=== PATIENT | female | born 1935 | race Caucasian/White ===

== ENCOUNTER 2019-04-05 21:15 | Emergency (ER) | payer OTHER ==
--- NOTE | 2019-04-05 21:19 | PDOC ---
History of Present Illness - General Stated Complaint: FALL Time Seen by Provider: 04/05/19 21:18 - History of Present Illness Initial Comments: 04/05/19 21:54 The patient is an 83 year old female with a history of HLD, Seizures, Gait disturbance who presents for evaluation following a fall. The patient states that she usually ambulates with a walker, however tonight, her assisted living facility was having a dance and she was dancing on some carpet when she tripped and fell with head trauma prompting her presentation to the ED for further evaluation. She denies LOC and otherwise denies headache, neck pain, fevers, chills, SOB, chest pain, nausea, vomiting, abdominal pain, changes with urination or bowel movements, or other injuries. Past History - Past Medical History Allergies/Adverse Reactions: Allergies Allergy/AdvReac Type Severity Reaction Status Date / Time Penicillins Allergy Verified 04/05/19 22:18 Home Medications: Ambulatory Orders Acetaminophen 325 mg PO PRN 04/05/19 Cyclobenzaprine HCl 5 mg PO BID 04/05/19 Levetiracetam 500 mg PO BID 04/05/19 Loperamide HCl [Loperamide] 2 mg PO PRN 04/05/19 Lovastatin 20 mg PO DAILY 04/05/19 Ranitidine HCl 150 mg PO BID 04/05/19 Vitamin B12 500 mcg PO DAILY 04/05/19 Review of Systems - Review of Systems Comments:: 04/05/19 22:12 Constitutional: No fevers, chills, fatigue, malaise HEENT: No Rhinorrhea, nasal congestion, visual changes Cardiovascular: No chest pain, syncope, palpitations, lightheadedness Respiratory: No Cough, SOB, Hemoptysis, Gastrointestinal: No Abdominal pain, Nausea, Vomiting, Constipation, Diarrhea, Melena Genitourinary: No Dysuria, Frequency, Urgency, Hesitancy, Hematuria, Flank pain Musculoskeletal: No Myalgia, arthralgia Skin: No rashes, itching, bruising, pallor Neurologic: No Headache, Dizziness, Numbness, Weakness, or Tingling Psychiatric: No Hallucinations. No SI or HI *Physical Exam - Physical Exam Comments: 04/05/19 22:12 General Appearance: Nourished. No Apparent Distress HEENT: EOMI, JACOBY. No Pharyngeal Erythema, Tonsillar Exudate, Tonsillar Erythema Neck: No Cervical Lymphadenopathy Respiratory/Chest: Lungs Clear, Normal Breath Sounds. No Crackles, Rales, Rhonchi, Wheezing Cardiovascular: Regular Rhythm, Regular Rate. No Murmur, Gallops, Rubs Gastrointestinal/Abdominal: Normal Bowel Sounds, Soft. 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 Medical Decision Making - Medical Decision Making 04/05/19 22:12 The patient is an 83 year old female with a history of HLD, Seizures, Gait disturbance who presents for evaluation following a fall. Given the patient's history and physical exam, we will obtain a head and cervical spine CT to evaluate further. We will continue to monitor and reassess while here in the ED. 04/06/19 00:[address] were unremarkable as preliminarily read by our director of distribution radiologist. We are comfortable discharging the patient home in stable condition. Patient was made aware of impression and plan, return precautions discussed including but not limited to worsening pain or symptoms, fevers, or signs of infection, chest pain, respiratory distress, inability to tolerate oral intake, dehydration, syncope, or neurologic changes. The patient is to follow up with PMD as recommended within 1 week, follow up information provided and the patient will call for an appointment. The patient is to take medications as instructed for duration of time and continue with supportive care , avoid triggers and precipitants. Patient is safe for outpatient follow-up. *DC/Admit/Observation/Transfer Diagnosis at time of Disposition: Fall Qualifiers: Encounter type: initial encounter Qualified Code(s): W19.XXXA - Unspecified fall, initial encounter - Discharge Dispostion Disposition: HOME Condition at time of disposition: Stable Decision to Admit order: No - Referrals Referrals: Tayo Mc MD [Primary Care Provider] - - Patient Instructions Printed Discharge Instructions: How to Prevent Falls Additional Instructions: 1) Please follow-up with your primary care doctor in the next 2-3 days. Please call tomorrow to schedule a follow up appointment. If you cannot follow up with your doctor within 1 week please return to the Emergency Department for any urgent issues. 2) Your imaging results were normal here in the ER. 3) If you have any worsening of symptoms or any other concerns please return to the ER immediately. Return if worsening symptoms including fevers, headache, vomiting, visual or hearing disturbances, abdominal pain, chest pain, shortness of breath, syncope, dehydration, inability to take things by mouth/vomiting, altered mental status, or worsening concerning symptoms. 4) Please continue taking your home medications as directed. Side effects may include upset stomach, abdominal pain, vomiting, or diarrhea. Do not drink alcohol with your medications. - Post Discharge Activity
[2019-04-05 22:17] VITALS: BMI 33.6
--- NOTE | 2019-04-05 22:49 | PDOC ---
Documentation entered by Shyla Paris SCRIBE, acting as scribe for Neeru Merrill MD. Neeru Merrill MD: This documentation has been prepared by the scribe, Shyla Paris SCRIBE, under my direction and personally reviewed by me in its entirety. I confirm that the documentation accurately reflects all work, treatment, procedures, and medical decision making performed by me. Attending Attestation - Resident Resident Name: William Estevez - ED Attending Attestation I have performed the following: I have examined & evaluated the patient, The case was reviewed & discussed with the resident, I agree w/resident's findings & plan, Exceptions are as noted - HPI HPI: 04/05/19 22:15 The patient is an 83 year old female with a significant past medical history of hypercholesterolemia, dementia, seizures and gait disturbance who presents to the emergency department s/p a fall earlier this evening. The patient reports that she was at her assisted living facility for a dance when she was dancing on a carpeted area when she subsequently fell and hit her head. It is noted that the patient does not recall the incident. The patient usually ambulates with her walker but was not using it this evening while dancing. She denies and loc, numbness, weakness, dizziness, chest pain, shortness of breath or headache. She denies any other symptoms or complaints. - Physicial Exam PE: GENERAL: Awake, alert, and fully oriented, in no acute distress HEAD: No signs of trauma EYES: PERRLA, EOMI, sclera anicteric, conjunctiva clear ENT: Auricles normal inspection, hearing grossly normal, nares patent, oropharynx clear without exudates. Moist mucosa NECK: Normal ROM, supple, no lymphadenopathy, JVD, or masses LUNGS: Breath sounds equal, clear to auscultation bilaterally. No wheezes, and no crackles HEART: Regular rate and rhythm, normal S1 and S2, no murmurs, rubs or gallops ABDOMEN: Soft, nontender, normoactive bowel sounds. No guarding, no rebound. No masses EXTREMITIES: Normal range of motion, no edema. No clubbing or cyanosis. No cords, erythema, or tenderness NEUROLOGICAL: Cranial nerves II through XII grossly intact. Normal speech. Motor and sensation intact SKIN: Warm, Dry, normal turgor, no rashes or lesions noted SPINE: No midline tenderness - Medical Decision Making Pt is s/p fall with head injury as per NH. Pt does not clearly recall the events that transpired (history of dementia). There are no outward signs of trauma, and she has no midline tenderness. Will obtain CTH and c-spine based on NH report and on account of patient's age. If neg will DC back to NH.
[2019-04-06] MEDS ORDERED: levETIRAcetam 500 MG TABLET (FP) PO ONE ×2 (01:05→01:07)
[2019-04-06 01:11] VITALS: BP 80/58; PULSE 74; TEMP 98.2
== END 2019-04-06 01:11 | disposition home or self-care (01) ==
LOC: JER 21:15
DX: S09.8XXA Other specified injuries of head, initial encounter (principal); W18.09XA Striking against other object with subsequent fall, initial encounter; Y93.41 Activity, dancing; Y92.098 Other place in other non-institutional residence as the place of occurrence of the external cause; Y99.8 Other external cause status; E78.5 Hyperlipidemia, unspecified; G40.909 Epilepsy, unspecified, not intractable, without status epilepticus; R26.89 Other abnormalities of gait and mobility; Z99.89 Dependence on other enabling machines and devices
CPT/HCPCS: 70450-TC; 72125-TC; 99282-25

== ENCOUNTER 2020-12-28 07:54 | Inpatient (IN) | payer OTHER ==
[2020-12-28 08:20] VITALS: BMI 32.9
[2020-12-28 09:57] LABS: BASO % 0.6 % (0-2.0); EOS % 3.5 % (0-4.5); HEMATOCRIT 35.7 % (32.4-45.2); HEMOGLOBIN 12.2 GM/dL (10.7-15.3); LYMPH % 30.2 % (8-40); MCH 30.6 pg (25.7-33.7); MCHC 34.1 g/dl (32.0-36.0); MEAN CELL VOLUME 89.8 fl (80-96); MEAN PLT VOLUME 7.4 fl (7.5-11.1); MONO % 8.5 % (3.8-10.2); NEUT % 57.2 % (42.8-82.8); PLATELET COUNT 287 K/MM3 (134-434); RBC 3.97 M/mm3 (3.60-5.2); RDW 14.7 % (11.6-15.6); WHITE BLOOD COUNT 7.9 K/mm3 (4.0-10.0)
[2020-12-28 10:16] LABS: CHLORIDE 106 mmol/L (98-107); POTASSIUM 4.4 mmol/L (3.5-5.1); SODIUM 139 mmol/L (136-145)
[2020-12-28 10:19] LABS: ALBUMIN 3.2 g/dl (3.4-5.0); CALCIUM 9.1 mg/dL (8.5-10.1)
[2020-12-28 10:21] LABS: ANION GAP 2 MMOL/L (8-16); CO2 31 mmol/L (21-32); GLUCOSE,RANDOM 96 mg/dL (74-106)
[2020-12-28 10:24] LABS: CREATININE 0.7 mg/dL (0.55-1.3); SGOT/AST 22 U/L (15-37); SGPT/ALT 20 U/L (13-61)
[2020-12-28 10:25] LABS: BILIRUBIN,TOTAL 0.5 mg/dL (0.2-1); TOT PROT 6.9 g/dl (6.4-8.2)
[2020-12-28 10:26] LABS: ALK PHOS 94 U/L (45-117)
[2020-12-28 10:46] LABS: EPI CELLS 2 /uL (0-25.1); HYALINE CASTS 0 /uL (0-3.1); URINE APPEARANCE CLEAR; URINE BACTERIA >9,000 /uL (0-1359); URINE BILIRUBIN NEGATIVE (NEGATIVE); URINE COLOR YELLOW; URINE GLUCOSE (UA) NEGATIVE (NEGATIVE); URINE KETONE NEGATIVE (NEGATIVE); URINE LEUK ESTERASE 3+ (NEGATIVE); URINE NITRITE POSITIVE (NEGATIVE); URINE PROTEIN NEGATIVE (NEGATIVE); URINE RBC 6 /uL (0-23.9); URINE UROBILINOGEN 0.2 mg/dL (0.2-1.0); URINE WBC 310 /uL (0-25.8)
[2020-12-28] MEDS ORDERED: CIPROFLOXACIN 200 MG/D5W 100 ML IVPB ONE (10:50)
[2020-12-28] MEDS ORDERED: SODIUM CHLORIDE 1,000 ML IV SCH (17:15)
[2020-12-28] MEDS: HEPARIN NA (PORCINE) 5,000 UNITS/ML 1ML VIAL SQ SCH (18:42)
[2020-12-28] MEDS: ATORVASTATIN CA 10 MG TABLET (FP) PO SCH (21:33)
[2020-12-28] MEDS: levETIRAcetam 500 MG TABLET (FP) PO SCH (21:33)
[2020-12-28] MEDS ORDERED: CIPROFLOXACIN 400 MG/D5W 400 MG/200 ML IVPB IVPB SCH (22:00)
[2020-12-29] MEDS: HEPARIN NA (PORCINE) 5,000 UNITS/ML 1ML VIAL SQ SCH ×3 (01:58→16:57)
[2020-12-29 07:17] LABS: BASO % 1.3 % (0-2.0); EOS % 5.8 % (0-4.5); HEMATOCRIT 33.7 % (32.4-45.2); HEMOGLOBIN 11.5 GM/dL (10.7-15.3); LYMPH % 37.1 % (8-40); MCH 30.9 pg (25.7-33.7); MCHC 34.1 g/dl (32.0-36.0); MEAN CELL VOLUME 90.6 fl (80-96); MEAN PLT VOLUME 7.6 fl (7.5-11.1); MONO % 10.8 % (3.8-10.2); PLATELET COUNT 261 K/MM3 (134-434); RBC 3.72 M/mm3 (3.60-5.2); RDW 14.4 % (11.6-15.6); WHITE BLOOD COUNT 5.9 K/mm3 (4.0-10.0)
[2020-12-29 07:43] LABS: POTASSIUM 3.9 mmol/L (3.5-5.1)
[2020-12-29 07:51] LABS: ALBUMIN 2.8 g/dl (3.4-5.0); BLOOD UREA NITROGEN 7.4 mg/dL (7-18); CALCIUM 8.9 mg/dL (8.5-10.1); MAGNESIUM 2.3 mg/dL (1.8-2.4)
[2020-12-29 07:55] LABS: CREATININE 0.6 mg/dL (0.55-1.3); PHOSPHOROUS 3.8 mg/dL (2.5-4.9)
[2020-12-29 07:56] LABS: BILIRUBIN,TOTAL 0.4 mg/dL (0.2-1)
[2020-12-29] MEDS: PANTOPRAZOLE 40 MG TABLET PO SCH (09:38)
[2020-12-29] MEDS: levETIRAcetam 500 MG TABLET (FP) PO SCH ×2 (09:38→21:28)
[2020-12-29] MEDS ORDERED: cefTRIAXone SODIUM 1 GM VIAL ONE (09:52)
[2020-12-29] MEDS ORDERED: DEXTROSE 5%-WATER - 50 ML IVPB ONE (09:53)
[2020-12-29] MEDS: CEFTRIAXONE 1 GM in DEXTROSE 5%-WATER - 50 ML IVPB SCH (10:09)
[2020-12-29] MEDS ORDERED: PNEUMOC 13-VAL CONJ-DIP CRM/PF 0.5 ML DISP.SYRIN IM ONE (14:00)
[2020-12-29] MEDS: ATORVASTATIN CA 10 MG TABLET (FP) PO SCH (21:28)
[2020-12-30] MEDS: HEPARIN NA (PORCINE) 5,000 UNITS/ML 1ML VIAL SQ SCH ×2 (01:58→10:37)
[2020-12-30 07:33] LABS: POTASSIUM 4.1 mmol/L (3.5-5.1)
[2020-12-30 07:35] LABS: BLOOD UREA NITROGEN 10.5 mg/dL (7-18); CALCIUM 8.8 mg/dL (8.5-10.1)
[2020-12-30 07:38] LABS: CREATININE 0.6 mg/dL (0.55-1.3)
[2020-12-30 07:43] LABS: HEMATOCRIT 35.7 % (32.4-45.2); MCH 30.3 pg (25.7-33.7); MCHC 33.5 g/dl (32.0-36.0); MEAN CELL VOLUME 90.3 fl (80-96); PLATELET COUNT 251 K/MM3 (134-434); RBC 3.95 M/mm3 (3.60-5.2); RDW 14.4 % (11.6-15.6); WHITE BLOOD COUNT 6.9 K/mm3 (4.0-10.0)
[2020-12-30] MEDS ORDERED: cefTRIAXone SODIUM 1 GM VIAL ONE (09:44)
[2020-12-30] MEDS ORDERED: DEXTROSE 5%-WATER - 50 ML IVPB ONE (09:44)
[2020-12-30] MEDS: CEFTRIAXONE 1 GM in DEXTROSE 5%-WATER - 50 ML IVPB SCH (10:36)
[2020-12-30] MEDS: PANTOPRAZOLE 40 MG TABLET PO SCH (10:37)
[2020-12-30] MEDS: levETIRAcetam 500 MG TABLET (FP) PO SCH (10:37)
[2020-12-30 13:53] VITALS: BP 124/62; PULSE 73; TEMP 98
== END 2020-12-30 16:23 | disposition home or self-care (01) | DRG 689 ==
LOC: JER 07:54 → JERBED 10:54 → J7W 15:44
PROVIDERS: ADMIT Internal Medicine
DX: N39.0 Urinary tract infection, site not specified (principal); G93.41 Metabolic encephalopathy; F03.90 Unspecified dementia, unspecified severity, without behavioral disturbance, psychotic disturbance, mood disturbance, and anxiety; G40.909 Epilepsy, unspecified, not intractable, without status epilepticus; E78.5 Hyperlipidemia, unspecified; K21.9 Gastro-esophageal reflux disease without esophagitis; I10 Essential (primary) hypertension; B96.20 Unspecified Escherichia coli [E. coli] as the cause of diseases classified elsewhere
CPT/HCPCS: 36415; 70450-TC; 80048; 80053; 81003; 82550; 83735; 84100; 84484; 85025; 85027; 87086; 87186; 90670; 93005; 93010; 97116-GP; 97161-GP; 99285-25; C9803; J1644; U0003

== ENCOUNTER 2021-01-06 07:26 | Inpatient (IN) | payer OTHER ==
[2021-01-06 15:40] LABS: EOS % 3.9 % (0-4.5); HEMATOCRIT 31.9 % (32.4-45.2); HEMOGLOBIN 10.7 GM/dL (10.7-15.3); LYMPH % 35.8 % (8-40); MCH 30.4 pg (25.7-33.7); MCHC 33.4 g/dl (32.0-36.0); MEAN CELL VOLUME 90.9 fl (80-96); MEAN PLT VOLUME 8.7 fl (7.5-11.1); NEUT % 51.3 % (42.8-82.8); PLATELET COUNT 127 K/MM3 (134-434); RBC 3.51 M/mm3 (3.60-5.2); RDW 14.5 % (11.6-15.6); WHITE BLOOD COUNT 5.1 K/mm3 (4.0-10.0)
[2021-01-06] MEDS ORDERED: levETIRAcetam 500 MG/5 ML INJECTION VIAL IVPB ONE ×2 (15:46→16:07)
[2021-01-06] MEDS ORDERED: ENOXAPARIN NA (PORCINE) 80 MG/0.8 ML DISP.SYRIN SQ ONE ×2 (16:09→16:52)
[2021-01-06 16:38] LABS: PLATELET ESTIMATE DECREASED
[2021-01-06 16:49] LABS: ALBUMIN 3.2 g/dl (3.4-5.0); BILIRUBIN,TOTAL 0.5 mg/dL (0.2-1); BLOOD UREA NITROGEN 10.3 mg/dL (7-18); CALCIUM 9.4 mg/dL (8.5-10.1); CREATININE 0.5 mg/dL (0.55-1.3); POTASSIUM 4.6 mmol/L (3.5-5.1); TOT PROT 7.1 g/dl (6.4-8.2)
[2021-01-06] MEDS ORDERED: levETIRAcetam 500 MG TABLET (FP) PO ONE ×2 (19:09→20:26)
[2021-01-07] MEDS: ENOXAPARIN NA (PORCINE) 80 MG/0.8 ML DISP.SYRIN SQ SCH ×3 (06:02→19:08)
[2021-01-07] MEDS: levETIRAcetam 500 MG TABLET (FP) PO SCH ×2 (10:13→21:38)
[2021-01-07 11:12] LABS: BASO % 0.6 % (0-2.0); EOS % 3.8 % (0-4.5); HEMATOCRIT 35.7 % (32.4-45.2); HEMOGLOBIN 11.9 GM/dL (10.7-15.3); LYMPH % 29.1 % (8-40); MCH 30.3 pg (25.7-33.7); MCHC 33.4 g/dl (32.0-36.0); MEAN CELL VOLUME 90.5 fl (80-96); MEAN PLT VOLUME 7.8 fl (7.5-11.1); MONO % 10.7 % (3.8-10.2); NEUT % 55.8 % (42.8-82.8); PLATELET COUNT 270 K/MM3 (134-434); RBC 3.95 M/mm3 (3.60-5.2); RDW 14.3 % (11.6-15.6); WHITE BLOOD COUNT 7.1 K/mm3 (4.0-10.0)
[2021-01-07 11:39] VITALS: BMI 27.3
[2021-01-07 11:44] LABS: ALBUMIN 2.9 g/dl (3.4-5.0); MAGNESIUM 2.2 mg/dL (1.8-2.4)
[2021-01-07 11:47] LABS: CREATININE 0.6 mg/dL (0.55-1.3)
[2021-01-07 11:49] LABS: TOT PROT 6.4 g/dl (6.4-8.2)
[2021-01-07 11:50] LABS: BILIRUBIN,TOTAL 0.4 mg/dL (0.2-1)
[2021-01-07] MEDS: ACETAMINOPHEN 325 MG TABLET (FP) PO PRN (15:52)
[2021-01-08] MEDS: ENOXAPARIN NA (PORCINE) 80 MG/0.8 ML DISP.SYRIN SQ SCH ×2 (05:47→17:12)
[2021-01-08] MEDS: levETIRAcetam 500 MG TABLET (FP) PO SCH ×2 (10:18→21:14)
[2021-01-08] MEDS: ACETAMINOPHEN 325 MG TABLET (FP) PO PRN ×2 (10:18→21:14)
[2021-01-09] MEDS: ACETAMINOPHEN 325 MG TABLET (FP) PO PRN ×4 (01:40→16:37)
[2021-01-09] MEDS: ENOXAPARIN NA (PORCINE) 80 MG/0.8 ML DISP.SYRIN SQ SCH ×2 (05:41→17:05)
[2021-01-09] MEDS: levETIRAcetam 500 MG TABLET (FP) PO SCH ×2 (09:39→21:02)
[2021-01-10] MEDS: ENOXAPARIN NA (PORCINE) 80 MG/0.8 ML DISP.SYRIN SQ SCH (05:21)
[2021-01-10] MEDS: ACETAMINOPHEN 325 MG TABLET (FP) PO PRN ×3 (06:26→15:03)
[2021-01-10] MEDS: levETIRAcetam 500 MG TABLET (FP) PO SCH ×2 (09:18→21:57)
[2021-01-10] MEDS: APIXABAN 5 MG TABLET PO SCH ×2 (10:52→21:57)
[2021-01-11] MEDS: ACETAMINOPHEN 325 MG TABLET (FP) PO PRN ×2 (01:52→10:11)
[2021-01-11 10:07] VITALS: BP 130/62; PULSE 76; TEMP 98.1
[2021-01-11] MEDS: levETIRAcetam 500 MG TABLET (FP) PO SCH (10:18)
[2021-01-11] MEDS: APIXABAN 5 MG TABLET PO SCH (10:18)
== END 2021-01-11 11:20 | disposition home or self-care (01) | DRG 301 ==
LOC: JER 07:26 → JERBED 18:28 → J7W 01-07 05:48
PROVIDERS: ADMIT Internal Medicine
DX: I82.401 Acute embolism and thrombosis of unspecified deep veins of right lower extremity (principal); G40.909 Epilepsy, unspecified, not intractable, without status epilepticus; K21.9 Gastro-esophageal reflux disease without esophagitis; E78.5 Hyperlipidemia, unspecified
CPT/HCPCS: 36415; 71045-TC-FY; 72192-TC; 72195-TC; 73523-TC-FY; 80053; 83735; 84100; 84484; 85025; 93005; 93010; 93971-TC; 97161-GP; 99285-25; C9803; U0003; U0005

== ENCOUNTER 2021-01-11 23:35 | Inpatient (IN) | payer OTHER ==
[2021-01-11 23:46] VITALS: BMI 27.2
[2021-01-12 00:19] LABS: BASO % 0.3 % (0-2.0); EOS % 0.8 % (0-4.5); HEMATOCRIT 35.7 % (32.4-45.2); HEMOGLOBIN 12.1 GM/dL (10.7-15.3); MCHC 33.8 g/dl (32.0-36.0); MEAN CELL VOLUME 88.7 fl (80-96); MEAN PLT VOLUME 8.3 fl (7.5-11.1); MONO % 8.8 % (3.8-10.2); NEUT % 78.1 % (42.8-82.8); PLATELET COUNT 299 K/MM3 (134-434); RBC 4.03 M/mm3 (3.60-5.2); RDW 14.9 % (11.6-15.6); WHITE BLOOD COUNT 13.8 K/mm3 (4.0-10.0)
[2021-01-12 00:28] LABS: INR 1.53 (0.83-1.09); PROTHROMBIN TIME (PATIENT) 18.6 SEC (9.7-13.0)
[2021-01-12 00:31] LABS: ACTIVATED PTT 33.3 SECONDS (25.2-36.5)
[2021-01-12 00:48] LABS: CHLORIDE 100 mmol/L (98-107); SODIUM 126 mmol/L (136-145)
[2021-01-12 00:50] LABS: CALCIUM 8.8 mg/dL (8.5-10.1)
[2021-01-12 00:51] LABS: ALBUMIN 2.7 g/dl (3.4-5.0); BLOOD UREA NITROGEN 16.1 mg/dL (7-18); CO2 25 mmol/L (21-32); GLUCOSE,RANDOM 129 mg/dL (74-106)
[2021-01-12 00:54] LABS: CREATININE 0.9 mg/dL (0.55-1.3)
[2021-01-12 00:57] LABS: ALK PHOS 104 U/L (45-117)
[2021-01-12 01:19] LABS: ANION GAP 0 MMOL/L (8-16); POTASSIUM > 10.0 mmol/L (3.5-5.1); SGOT/AST 177 U/L (15-37); SGPT/ALT 42 U/L (13-61)
[2021-01-12 01:21] LABS: BILIRUBIN,TOTAL < 0.1 mg/dL (0.2-1)
[2021-01-12 02:21] LABS: POTASSIUM 4.3 mmol/L (3.5-5.1)
[2021-01-12 02:22] LABS: BLOOD UREA NITROGEN 14.8 mg/dL (7-18); CALCIUM 9.1 mg/dL (8.5-10.1)
[2021-01-12 02:26] LABS: CREATININE 0.8 mg/dL (0.55-1.3)
[2021-01-12 03:20] LABS: PH,URINE 5.5 (5.0-8.0); URINE APPEARANCE CLEAR; URINE BILIRUBIN NEGATIVE (NEGATIVE); URINE COLOR YELLOW; URINE GLUCOSE (UA) NEGATIVE (NEGATIVE); URINE KETONE TRACE (NEGATIVE); URINE LEUK ESTERASE NEGATIVE (NEGATIVE); URINE NITRITE NEGATIVE (NEGATIVE); URINE PROTEIN TRACE (NEGATIVE); URINE UROBILINOGEN 0.2 mg/dL (0.2-1.0)
[2021-01-12] MEDS ORDERED: LIDOCAINE 5% TOPICAL PATCH TP ONE (06:05)
[2021-01-12] MEDS ORDERED: ACETAMINOPHEN 1000 MG/100 ML VIAL (NON FORMULARY) IVPB ONE ×2 (06:05→14:45)
[2021-01-12] MEDS ORDERED: SODIUM CHLORIDE 1,000 ML IV SCH (06:15)
[2021-01-12 09:35] LABS: HEMATOCRIT 33.4 % (32.4-45.2); HEMOGLOBIN 11.4 GM/dL (10.7-15.3); MCH 30.8 pg (25.7-33.7); MCHC 34.2 g/dl (32.0-36.0); MEAN CELL VOLUME 90.1 fl (80-96); MEAN PLT VOLUME 7.9 fl (7.5-11.1); PLATELET COUNT 289 K/MM3 (134-434); RDW 14.3 % (11.6-15.6); WHITE BLOOD COUNT 11.1 K/mm3 (4.0-10.0)
[2021-01-12] MEDS ORDERED: levETIRAcetam 500 MG TABLET (FP) PO SCH (10:00)
[2021-01-12] MEDS ORDERED: APIXABAN 5 MG TABLET PO SCH (10:00)
[2021-01-12 10:01] LABS: CALCIUM 8.8 mg/dL (8.5-10.1)
[2021-01-12 10:02] LABS: ALBUMIN 2.9 g/dl (3.4-5.0); MAGNESIUM 2.2 mg/dL (1.8-2.4)
[2021-01-12 10:05] LABS: CREATININE 0.7 mg/dL (0.55-1.3); PHOSPHOROUS 3.9 mg/dL (2.5-4.9)
[2021-01-12 10:06] LABS: BILIRUBIN,TOTAL 0.7 mg/dL (0.2-1); TOT PROT 6.5 g/dl (6.4-8.2)
[2021-01-12 10:09] LABS: ERYTHROCYTE SEDIMENTATION RATE 89 mm/hr (0-30)
[2021-01-12] MEDS ORDERED: levETIRAcetam 500 MG TABLET (FP) PO ONE (10:15)
[2021-01-12] MEDS ORDERED: APIXABAN 5 MG TABLET ONE (10:15)
[2021-01-12] MEDS ORDERED: traMADol HCL 50 MG TABLET PO PRN (12:00)
[2021-01-12] MEDS ORDERED: traMADol HCL 50 MG TABLET PO ONE (12:00)
[2021-01-12] MEDS ORDERED: traMADol HCL 50 MG TABLET ONE (13:07)
[2021-01-12] MEDS ORDERED: morphine CARPU-JECT 2 MG/1 ML DISP.SYRIN IM ONE (14:12)
[2021-01-12] MEDS ORDERED: ACETAMINOPHEN INJECTION 100 ML IVPB ONE (14:36)
[2021-01-12 18:11] VITALS: BP 133/69; PULSE 67; TEMP 97.8
[2021-01-12] MEDS ORDERED: LIDOCAINE PATCH REMOVAL MC SCH (22:00)
== END 2021-01-12 18:01 | disposition home health service (06) | DRG 301 ==
LOC: JER 23:35 → JERBED 01-12 04:36
PROVIDERS: ADMIT Hospitalist
DX: I82.4Z1 Acute embolism and thrombosis of unspecified deep veins of right distal lower extremity (principal); M79.605 Pain in left leg; E78.5 Hyperlipidemia, unspecified; K21.9 Gastro-esophageal reflux disease without esophagitis; F03.90 Unspecified dementia, unspecified severity, without behavioral disturbance, psychotic disturbance, mood disturbance, and anxiety
CPT/HCPCS: 36415; 70450-TC; 71045-TC-FY; 73502-TC-LT-FY; 73523-TC-FY; 80048; 80053; 81003; 82607; 82746; 83735; 84100; 84436; 84443; 84484; 85025; 85027; 85610; 85651; 85730; 86140; 87086; 93005; 93010; 99285-25; C9803; J0131; U0003; U0005

== ENCOUNTER 2021-01-12 19:39 | Inpatient (IN) | payer OTHER ==
[2021-01-12] MEDS ORDERED: APIXABAN 5 MG TABLET PO ONE (21:25)
[2021-01-12] MEDS ORDERED: levETIRAcetam 500 MG TABLET (FP) PO ONE ×2 (21:25→21:31)
[2021-01-12] MEDS ORDERED: APIXABAN 5 MG TABLET ONE (21:30)
[2021-01-12] MEDS ORDERED: DOCUSATE SODIUM 100 MG CAPSULE (FP) PO PRN (22:49)
[2021-01-12] MEDS ORDERED: SODIUM CHLORIDE 1,000 ML IV SCH (23:00)
[2021-01-12] MEDS ORDERED: LIDOCAINE 5% TOPICAL PATCH TP ONE (23:06)
[2021-01-12] MEDS ORDERED: ACETAMINOPHEN 325 MG TABLET (FP) PO PRN (23:08)
[2021-01-13] MEDS: ACETAMINOPHEN 325 MG TABLET (FP) PO PRN ×2 (01:32→14:35)
[2021-01-13 08:09] LABS: BASO % 0.4 % (0-2.0); EOS % 3.6 % (0-4.5); HEMATOCRIT 32.4 % (32.4-45.2); HEMOGLOBIN 11.1 GM/dL (10.7-15.3); LYMPH % 26.7 % (8-40); MCHC 34.2 g/dl (32.0-36.0); MEAN CELL VOLUME 90.7 fl (80-96); MEAN PLT VOLUME 8.6 fl (7.5-11.1); MONO % 8.9 % (3.8-10.2); NEUT % 60.4 % (42.8-82.8); PLATELET COUNT 296 K/MM3 (134-434); RBC 3.57 M/mm3 (3.60-5.2); WHITE BLOOD COUNT 8.5 K/mm3 (4.0-10.0)
[2021-01-13 08:25] LABS: CALCIUM 8.6 mg/dL (8.5-10.1)
[2021-01-13 08:26] LABS: ALBUMIN 2.9 g/dl (3.4-5.0); BLOOD UREA NITROGEN 10.6 mg/dL (7-18); MAGNESIUM 2.2 mg/dL (1.8-2.4)
[2021-01-13 08:28] LABS: CREATININE 0.5 mg/dL (0.55-1.3); PHOSPHOROUS 3.6 mg/dL (2.5-4.9)
[2021-01-13 08:30] LABS: BILIRUBIN,TOTAL 0.8 mg/dL (0.2-1); TOT PROT 6.5 g/dl (6.4-8.2)
[2021-01-13] MEDS: levETIRAcetam 500 MG TABLET (FP) PO SCH ×2 (09:00→16:14)
[2021-01-13] MEDS: APIXABAN 5 MG TABLET PO SCH ×2 (09:00→21:36)
[2021-01-13] MEDS ORDERED: levETIRAcetam 500 MG TABLET (FP) PO SCH (10:00)
[2021-01-13] MEDS ORDERED: LIDOCAINE PATCH REMOVAL MC ONE (11:00)
[2021-01-13] MEDS: traMADol HCL 50 MG TABLET PO PRN (21:34)
[2021-01-13] MEDS: GABAPENTIN 100 MG CAPSULE PO SCH (21:37)
[2021-01-14 05:11] LABS: SARS-CoV-2 NAA Not Detected (Not Detected)
[2021-01-14] MEDS: GABAPENTIN 100 MG CAPSULE PO SCH ×3 (06:23→21:25)
[2021-01-14] MEDS: levETIRAcetam 500 MG TABLET (FP) PO SCH ×2 (06:23→17:13)
[2021-01-14 08:18] LABS: BASO % 0.4 % (0-2.0); EOS % 3.2 % (0-4.5); HEMATOCRIT 31.1 % (32.4-45.2); HEMOGLOBIN 10.5 GM/dL (10.7-15.3); LYMPH % 24.4 % (8-40); MCH 30.5 pg (25.7-33.7); MCHC 33.9 g/dl (32.0-36.0); MEAN CELL VOLUME 90.1 fl (80-96); MEAN PLT VOLUME 8.1 fl (7.5-11.1); MONO % 8.8 % (3.8-10.2); NEUT % 63.2 % (42.8-82.8); PLATELET COUNT 318 K/MM3 (134-434); RBC 3.45 M/mm3 (3.60-5.2); RDW 13.9 % (11.6-15.6); WHITE BLOOD COUNT 8.3 K/mm3 (4.0-10.0)
[2021-01-14 08:38] LABS: ALBUMIN 2.6 g/dl (3.4-5.0); BLOOD UREA NITROGEN 7.2 mg/dL (7-18); CALCIUM 8.7 mg/dL (8.5-10.1)
[2021-01-14 08:42] LABS: CREATININE 0.5 mg/dL (0.55-1.3)
[2021-01-14 08:43] LABS: BILIRUBIN,TOTAL 0.5 mg/dL (0.2-1)
[2021-01-14] MEDS: APIXABAN 5 MG TABLET PO SCH ×2 (10:46→21:25)
[2021-01-14 14:36] VITALS: BMI 20.6
[2021-01-14] MEDS: ACETAMINOPHEN 325 MG TABLET (FP) PO PRN (17:11)
[2021-01-14] MEDS: AMINO ACIDS/PROTEIN HYDROLYS 30 ML LIQUID.PKT PO SCH (17:13)
[2021-01-15] MEDS: levETIRAcetam 500 MG TABLET (FP) PO SCH ×2 (06:24→16:46)
[2021-01-15] MEDS: GABAPENTIN 100 MG CAPSULE PO SCH ×3 (06:24→21:05)
[2021-01-15] MEDS: ACETAMINOPHEN 325 MG TABLET (FP) PO PRN (08:59)
[2021-01-15] MEDS: AMINO ACIDS/PROTEIN HYDROLYS 30 ML LIQUID.PKT PO SCH ×2 (09:00→16:47)
[2021-01-15] MEDS: APIXABAN 5 MG TABLET PO SCH ×2 (09:00→21:05)
[2021-01-15] MEDS: MULTIVITAMINS THER W-MINERALS COMBO TABLET (FP) PO SCH (09:00)
[2021-01-15] MEDS: traMADol HCL 50 MG TABLET PO PRN (21:05)
[2021-01-16] MEDS: levETIRAcetam 500 MG TABLET (FP) PO SCH ×2 (06:50→17:27)
[2021-01-16] MEDS: GABAPENTIN 100 MG CAPSULE PO SCH ×3 (06:50→21:16)
[2021-01-16 07:34] LABS: BASO % 0.8 % (0-2.0); HEMATOCRIT 30.8 % (32.4-45.2); HEMOGLOBIN 10.3 GM/dL (10.7-15.3); LYMPH % 35.9 % (8-40); MCH 30.3 pg (25.7-33.7); MCHC 33.5 g/dl (32.0-36.0); MEAN CELL VOLUME 90.4 fl (80-96); MEAN PLT VOLUME 8.1 fl (7.5-11.1); MONO % 9.2 % (3.8-10.2); NEUT % 49.1 % (42.8-82.8); PLATELET COUNT 365 K/MM3 (134-434); RDW 13.6 % (11.6-15.6); WHITE BLOOD COUNT 7.8 K/mm3 (4.0-10.0)
[2021-01-16 08:00] LABS: CALCIUM 8.8 mg/dL (8.5-10.1)
[2021-01-16 08:01] LABS: ALBUMIN 2.5 g/dl (3.4-5.0); BLOOD UREA NITROGEN 17.9 mg/dL (7-18)
[2021-01-16 08:04] LABS: CREATININE 0.5 mg/dL (0.55-1.3)
[2021-01-16 08:06] LABS: BILIRUBIN,TOTAL 0.4 mg/dL (0.2-1); TOT PROT 5.9 g/dl (6.4-8.2)
[2021-01-16] MEDS ORDERED: PT OWN MED DRAWER 7, Y5N ONE (09:37)
[2021-01-16] MEDS: APIXABAN 5 MG TABLET PO SCH ×2 (10:46→21:16)
[2021-01-16] MEDS: MULTIVITAMINS THER W-MINERALS COMBO TABLET (FP) PO SCH (10:46)
[2021-01-16] MEDS: AMINO ACIDS/PROTEIN HYDROLYS 30 ML LIQUID.PKT PO SCH ×2 (10:46→16:49)
[2021-01-16] MEDS: ACETAMINOPHEN 325 MG TABLET (FP) PO PRN (21:16)
[2021-01-17] MEDS: levETIRAcetam 500 MG TABLET (FP) PO SCH ×2 (06:28→16:39)
[2021-01-17] MEDS: GABAPENTIN 100 MG CAPSULE PO SCH ×2 (06:28→14:49)
[2021-01-17 09:33] LABS: BASO % 0.7 % (0-2.0); EOS % 5.8 % (0-4.5); HEMATOCRIT 34.2 % (32.4-45.2); HEMOGLOBIN 11.5 GM/dL (10.7-15.3); LYMPH % 34.6 % (8-40); MCH 30.2 pg (25.7-33.7); MCHC 33.5 g/dl (32.0-36.0); MEAN CELL VOLUME 90.2 fl (80-96); MEAN PLT VOLUME 7.9 fl (7.5-11.1); MONO % 9.1 % (3.8-10.2); NEUT % 49.8 % (42.8-82.8); PLATELET COUNT 431 K/MM3 (134-434); RBC 3.79 M/mm3 (3.60-5.2); RDW 13.7 % (11.6-15.6); WHITE BLOOD COUNT 6.4 K/mm3 (4.0-10.0)
[2021-01-17 10:02] LABS: ALBUMIN 2.8 g/dl (3.4-5.0)
[2021-01-17 10:05] LABS: BLOOD UREA NITROGEN 16.4 mg/dL (7-18); CALCIUM 8.9 mg/dL (8.5-10.1)
[2021-01-17 10:06] LABS: BILIRUBIN,TOTAL 0.6 mg/dL (0.2-1)
[2021-01-17 10:07] LABS: TOT PROT 6.5 g/dl (6.4-8.2)
[2021-01-17 10:08] LABS: CREATININE 0.5 mg/dL (0.55-1.3)
[2021-01-17] MEDS: MULTIVITAMINS THER W-MINERALS COMBO TABLET (FP) PO SCH (10:46)
[2021-01-17] MEDS: AMINO ACIDS/PROTEIN HYDROLYS 30 ML LIQUID.PKT PO SCH (10:46)
[2021-01-17] MEDS: APIXABAN 5 MG TABLET PO SCH (10:46)
[2021-01-17 14:30] VITALS: BP 107/53; PULSE 74; TEMP 98.2
== END 2021-01-17 17:11 | DRG 92 ==
LOC: JER 19:39 → JERBED 20:59 → J7W 01-13 00:10
PROVIDERS: ADMIT Hospitalist; ATTEND Internal Medicine
DX: R26.9 Unspecified abnormalities of gait and mobility (principal); I82.401 Acute embolism and thrombosis of unspecified deep veins of right lower extremity; E78.5 Hyperlipidemia, unspecified; F03.90 Unspecified dementia, unspecified severity, without behavioral disturbance, psychotic disturbance, mood disturbance, and anxiety; K21.9 Gastro-esophageal reflux disease without esophagitis; G40.909 Epilepsy, unspecified, not intractable, without status epilepticus; K59.09 Other constipation
CPT/HCPCS: 36415; 80053; 82550; 83735; 84100; 85025; 97116-GP; 97162-GP; 99285-25; C9803; U0003; U0005